=== PATIENT | male | born 1950 | race Caucasian/White ===

== ENCOUNTER 2017-02-25 07:13 | Day surgery (SDC) | payer OTHER ==
[2017-02-21 11:00] LABS: BASOPHILS 0.2 %; BASOPHILS ABSOLUTE 0.02 10/3/uL (0.0-0.16); EOSINOPHILS 2.8 %; EOSINOPHILS ABSOLUTE 0.23 10/3/uL (0.0-0.53); HEMOGLOBIN 13.5 g/dL (13.6-17.8); IMMATURE GRANULOCYTES 0.2 %; IMMATURE GRANULOCYTES ABSOLUTE 0.02 10/3/uL (0.0-0.11); LYMPHOCYTES 19.9 %; LYMPHOCYTES ABSOLUTE 1.64 10/3/uL (0.67-4.30); MEAN CORPUS HGB CONC 35.1 g/dL (32.0-36.0); MEAN CORPUSCULAR HEMOGLOB 28.4 pg (26.0-34.0); MEAN CORPUSCULAR VOLUME 80.9 fL (80-100); MONOCYTES 6.9 %; MONOCYTES ABSOLUTE 0.57 10/3/uL (0.21-1.20); NEUTROPHILS ABSOLUTE 5.77 10/3/uL (2.02-8.40); PLATELET COUNT 177 10/3/uL (150-400); RBC DISTRIBUTION WIDTH 13.6 % (12.0-16.0); RED CELL COUNT 4.76 10/6/uL (4.7-6.1)
[2017-02-21 11:01] LABS: HEMATOCRIT 38.5 % (40.0-51.0); MANUAL DIFF NO %; WHITE BLOOD CELLS 8.3 10/3/uL (4.5-10.5)
[2017-02-21 11:15] LABS: BUN (BLOOD UREA NITROGEN) 31 MG/DL (6-23); CALCIUM, SERUM 9.1 MG/DL (8.5-10.4); CHLORIDE, SERUM 105 MMOL/L (96-112); CO2 (CARBON DIOXIDE) 27 MMOL/L (24-34); POTASSIUM, SERUM 4.3 MMOL/L (3.5-5.3)
[2017-02-21 11:17] LABS: CREATININE 3.48 MG/DL (0.70-1.30); GFR AFRICAN AMERICAN 20 ML/MIN (>=60); GFR NON AFRICAN AMERICAN 17 ML/MIN (>=60); GLUCOSE, SERUM 208 MG/DL (60-99); SODIUM, SERUM 140 MMOL/L (135-148)
--- NOTE | ~2017-02-25 | OP ---
Record Of Operation [facility] [address] [place]. [address] NAME: ROSARIO DYER : 48 STATUS : REG [facility]#: [id number] AGE: 66 ADM/REG DATE : 02/25/17 MR#: [id number] REPORT SERV DATE: 02/25/17 DICTATED BY: PARTH ZHANG DATE: 02/25/17 REPORT STATUS : Draft TRANSCRIBED BY: MODL DATE: 02/25/17 DATE OF PROCEDURE: 02/25/2017 PREOPERATIVE DIAGNOSIS: Chronic kidney disease, stage 4. POSTOPERATIVE DIAGNOSIS: Chronic kidney disease, stage 4. PROCEDURE: Left radiocephalic fistula. FELLOW: Lei. ANESTHESIA: Regional with local and sedation. COMPLICATIONS: None. BLOOD LOSS: Minimal. HISTORY: The patient is a 66-year-old male with renal failure, not yet on dialysis. It was felt that he will benefit from a left arm fistula. This was discussed in detail with the patient. He expressed understanding and desired to proceed. DESCRIPTION OF PROCEDURE: The patient was taken to the operating room and placed in the supine position. He was given IV sedation without complication. The left arm was prepped and draped in sterile fashion. He received a block by anesthesia in the preoperative area. Ultrasound was used to examine the veins in the left arm. He had a 3 mm cephalic vein and 3 mm radial artery. 1% lidocaine was infiltrated in the skin and subcutaneous tissues at the wrist and a longitudinal incision was created. Dissection was performed to identify the cephalic vein, which was of good size for fistula placement. This was freed circumferentially. Attention was turned medially and dissection performed to identify the radial artery, which was freed circumferentially and isolated a vessel loop. The patient was given 3000 units of heparin intravenously. The vein was dissected as distally as possible, controlled with clips, divided proximal to the clips, and spatulated to create a wide mouth for anastomosis. The artery was controlled proximally and distally with vascular clamps. After more than 3 minutes of heparinization, a #11 blade was used to create an arteriotomy, which was extended with Ren scissors. The vein was sewn end-to-side to the artery with running 6-0 Prolene suture. Upon completion, flow was restored and the vein dilated nicely. It was dissected as proximally as possible to free tension. A large branch was identified, controlled with clips, and divided. There was a palpable thrill and good Doppler bruit in the vein as well. Once hemostasis was assured, the subcutaneous tissues were closed with 3-0 Vicryl suture. Skin was closed with 4-0 Monocryl suture. Dermabond dressing applied. The patient tolerated the procedure well. He will be taken to the recovery room and discharged home when stable. [facility] Record Of Operation [address] [place]. [address] NAME: ROSARIO DYER : 48 STATUS : [place] [facility] [place] [id number] AGE: 66 ADM/REG DATE : 02/25/17 MR#: [id number] REPORT SERV DATE: 02/25/17 DICTATED BY: PARTH ZHANG DATE: 02/25/17 REPORT STATUS : Draft TRANSCRIBED BY: TRICIA DATE: 02/25/17 Parth Zhang M.D. / [id number] CC: Orin Ramirez M.D.
[~2017-02-25 07:13] MED LIST: COREG12 PO; INSNOVR SC; L20 PO; LANTUS SC; LIPITOR20 PO; NORV10 PO; PRIN10 PO; SODIUM BICARB PO; TIMOLOL MAL0.5 % OPH; TRAZODONE150 MG PO; XALAT OPH
[2017-02-25 09:54] LABS: BUN (BLOOD UREA NITROGEN) 32 MG/DL (6-23); CALCIUM, SERUM 9.3 MG/DL (8.5-10.4); CHLORIDE, SERUM 111 MMOL/L (96-112); CO2 (CARBON DIOXIDE) 25 MMOL/L (24-34); CREATININE 3.48 MG/DL (0.70-1.30); GFR AFRICAN AMERICAN 20 ML/MIN (>=60); GFR NON AFRICAN AMERICAN 17 ML/MIN (>=60); POTASSIUM, SERUM 4.5 MMOL/L (3.5-5.3); SODIUM, SERUM 141 MMOL/L (135-148)
[2017-02-25 09:55] LABS: GLUCOSE, SERUM 144 MG/DL (60-99)
== END 2017-02-25 17:52 | disposition home or self-care (01) ==
LOC: SDC 07:13
PROVIDERS: Surgery
PROC: 031C0ZF Bypass Left Radial Artery to Lower Arm Vein, Open Approach (ICD-10-PCS; principal; 2017-02-25 10:30)
DX: I12.9 Hypertensive chronic kidney disease with stage 1 through stage 4 chronic kidney disease, or unspecified chronic kidney disease (principal); E11.22 Type 2 diabetes mellitus with diabetic chronic kidney disease; E11.51 Type 2 diabetes mellitus with diabetic peripheral angiopathy without gangrene; E11.40 Type 2 diabetes mellitus with diabetic neuropathy, unspecified; E11.39 Type 2 diabetes mellitus with other diabetic ophthalmic complication; H40.9 Unspecified glaucoma; N18.4 Chronic kidney disease, stage 4 (severe); M19.90 Unspecified osteoarthritis, unspecified site; F17.210 Nicotine dependence, cigarettes, uncomplicated; F17.220 Nicotine dependence, chewing tobacco, uncomplicated; Z98.890 Other specified postprocedural states; Z95.820 Peripheral vascular angioplasty status with implants and grafts; Z82.49 Family history of ischemic heart disease and other diseases of the circulatory system; Z80.1 Family history of malignant neoplasm of trachea, bronchus and lung; J44.9 Chronic obstructive pulmonary disease, unspecified; Z79.4 Long term (current) use of insulin; Z79.899 Other long term (current) drug therapy; Z98.41 Cataract extraction status, right eye; Z98.42 Cataract extraction status, left eye; Z96.1 Presence of intraocular lens
CPT/HCPCS: 80048; 82962; 85025; 93005; A9270-GY; J0360; J0690; J2250; J2795; J3010